=== PATIENT | female | born 1965 | race Caucasian/White ===

== ENCOUNTER 2018-04-09 12:31 | Inpatient (IN) ==
[2018-04-09 15:25] LABS: Baso % (Auto) 0.7 % (0.0-2.0); Eos % (Auto) 0.6 % (0.0-4.0); Hematocrit 42.6 % (35.0-46.0); Hemoglobin 14.8 gm/dL (11.6-15.3); Lymph # (Auto) 1.1 th/mm3 (1.0-4.8); Mean Corpuscular HGB Conc 34.8 % (32.0-36.0); Mean Corpuscular Hemoglobin 30.5 pg (27.0-34.0); Mean Corpuscular Volume 87.7 fL (80.0-100.0); Mean Platelet Volume 7.8 fL (7.0-11.0); Mono # (Auto) 0.6 th/mm3 (0.0-0.9); Mono % (Auto) 12.1 % (0.0-8.0); Neut # (Auto) 3.4 th/mm3 (1.8-7.7); Neut % (Auto) 65.6 % (16.0-70.0); Platelet Count 233 th/mm3 (150-450); Red Blood Count 4.86 mil/mm3 (4.00-5.30); Red Cell Distribution Width 13.5 % (11.6-17.2); White Blood Count 5.1 th/mm3 (4.0-11.0)
--- NOTE | 2018-04-09 15:26 | CT ---
EXAM DATE: 04/09/2018 3:22 PM EDT AGE/SEX: 52 years / Female INDICATIONS: Patient feels disoriented CLINICAL DATA: This is the patient's initial encounter. Patient reports that signs and symptoms have been present for 1 day and indicates a pain score of 0/10. MEDICAL/SURGICAL HISTORY: None. None. RADIATION DOSE: 56.35 CTDI (mGy) COMPARISON: [facility], CT HEAD W/O CONTRAST, 04/08/2018. . TECHNIQUE: CT of the head without contrast. Using automated exposure control and adjustment of the mA and/or kV according to patient size, radiation dose was kept as low as reasonably achievable to ob tain optimal diagnostic quality images. DICOM format image data is available electronically for revi ew and comparison. FINDINGS: Cerebrum: The ventricles are normal for age. No evidence of midline shift, mass lesion, hemorrhage or acute infarction. No extraaxial fluid collections are seen. Posterior Fossa: The cerebellum and brainstem are intact. The 4th ventricle is midline. The cerebe llopontine angle is unremarkable. Extracranial: The visualized portion of the orbits is intact. Skull: The calvaria is intact. No evidence of skull fracture. CONCLUSION: 1. Negative, inflammatory process cannot be entirely excluded. . Electronically signed by: Giovanni Mclean MD 04/09/2018 3:25 PM EDT
[2018-04-09 15:44] LABS: Alanine Aminotransferase 19 U/L (10-53); Albumin 4.1 g/dL (3.4-5.0); Anion Gap 12 meq/L (5-15); Aspartate Aminotransferase 14 U/L (15-37); Blood Urea Nitrogen 30 mg/dL (7-18); Carbon Dioxide 22.9 meq/L (21.0-32.0); Chloride 108 meq/L (98-107); Glomerular Filtration Rate 46 mL/min (>89); Glucose,Random 67 mg/dL (74-106); Sodium 143 meq/L (136-145)
[2018-04-09 15:47] LABS: Alkaline Phosphatase 48 U/L (45-117); Total Protein 8.6 g/dL (6.4-8.2)
--- NOTE | 2018-04-09 16:19 | ED ---
HPI General Chief Complaint: Medical Clearance Stated Complaint: Medical Complaint Time Seen by Provider: 04/09/18 13:14 Source: patient, old records reviewed and police Mode of arrival: ambulatory Limitations: altered mental status History of Present Illness HPI narrative: 52-year-old female presents to the emergency department under law enforcement custody for medical clearance. She was apparently found another person's hotel room by police and when she was arrested she claims that she was disoriented. On my examination the patient answers questions occasionally. When I asked her what brought her into the emergency department she says "confused" and then also answered "dizzy." When I continue to ask her questions she answers "I am confused." When asked where she is she says "hospital." She is not able to answer what her name is, what city she is then, the date, and who the president is. She does not her head yes and no to some of the questions. When I ask her about drugs and alcohol she nods her head no. When asked her if she was allergic to anything she nodded her head no. When I asked her if she had any medical history she nodded her head no. Although, I did review the patient's medical record and the patient's previous visit reports history of anemia, HIV, hepatitis C, schizophrenia, and migraines. No known aggravating or relieving factors. Onset unknown. Duration unknown. Symptoms are moderate to severe in severity. She is unable to verify if she has a primary care provider. Related Data Home Medications Medication Instructions Recorded Confirmed Unable to Obtain Home Meds 04/08/18 04/08/18 Allergies Allergy/AdvReac Type Severity Reaction Status Date / Time No Known Allergies Allergy Unverified 04/09/18 13:11 Review of Systems ROS: all other systems reviewed are negative PMFSH History History Provided By: Patient Social History Social History Substance History: Unable to Obtain Smoking Status: Unknown if ever smoked How Often Do You Have a Drink Containing Alcohol: Unable to Obtain Recent Travel in [place] within the Last 8 Weeks: No Recent Out of Country Travel within the Last 8 Weeks: No Exam Narrative Exam Narrative: Physical exam is limited secondary to the patient not being cooperative for physical exam. I attempted to do neuro exam but the patient is being uncooperative. GENERAL: Well-nourished, well-developed female patient, in no acute distress SKIN: Warm and dry. HEAD: Atraumatic. Normocephalic. No facial droop noted. EYES: Pupils equal and round at 3 mm with brisk reaction. PERRLA. No scleral icterus. No injection or drainage. ENT: Mucosa pink and moist. Airway patent. NECK: Trachea midline. CARDIOVASCULAR: Regular rate and rhythm. No murmur appreciated. RESPIRATORY: No accessory muscle use. Breath sounds clear and equal bilaterally. No retractions or tachypnea. GASTROINTESTINAL: Abdomen soft, non-tender, nondistended. Positive bowel sounds. No hepato-splenomegaly, or palpable masses. No guarding. MUSCULOSKELETAL: No obvious deformities. No clubbing. No cyanosis. No edema. NEUROLOGICAL: Awake and alert. Oriented to place: hospital. No obvious cranial nerve deficits. Motor grossly within normal limits. Moving all extremities. Speech is normal when she talks. PSYCHIATRIC: Appropriate mood and affect; insight and judgment normal. Course Initial Documented Vital Signs Temperature 98.3 F 04/09/18 12:36 Pulse Rate 70 04/09/18 12:36 Respiratory Rate 16 04/09/18 12:36 Blood Pressure 123/87 04/09/18 12:36 Pulse Oximetry 99 04/09/18 12:36 Last Documented Vital Signs Temperature 97.9 F 04/09/18 20:00 Pulse Rate 63 04/09/18 20:00 Respiratory Rate 16 04/09/18 20:00 Blood Pressure 121/85 04/09/18 20:00 Pulse Oximetry 100 04/09/18 20:00 Medical Decision Making [facility] Narrative Medical decision making narrative: 52-year-old female presents under law enforcement custody for medical clearance. She was apparently found another person's hotel room and when she was arrested she claimed that she was disoriented. She tells me that she is disoriented and dizzy. She will only answer specific questions with 1 or 2 word answers. She continues to say "I am confused." Physical exam and HPI are limited secondary to patient not cooperating or her altered mental status. CBC, CMP, EKG, CT head ordered. CT head concluded negative, inflammatory process cannot be entirely excluded. I discussed the findings with Dr. Parr and he recommended calling radiology. I called and spoke with Dr. Mclean, radiologist, and he says that he cannot exclude an inflammatory process secondary to the patient being seen here yesterday for altered mental status and CT head yesterday was unremarkable. I reviewed the medical record and the patient was seen here yesterday for altered mental status; CBC, CMP, urinalysis, drug and alcohol screen, CT head were all unremarkable. Per patient's previous visit patient has history of anemia, HIV, hepatitis C, schizophrenia, and migraines. I discussed this with Dr. Parr and he recommended lumbar puncture and HIV workup. Orders entered. 1805: I spoke with HUMZA Copeland and report given for patient admission. Patient will be admitted for observation for continued altered mental status. Medical Screen Exam Complete: Yes Emergency Medical Condition: Yes Differential Diagnosis Differential Diagnosis: Altered mental status, dizziness, confusion, encephalitis, meningitis, medication noncompliance, medical clearance for incarceration Lab Data Result diagrams: 04/09/18 14:41 04/09/18 14:41 Lab Results 04/09/18 04/09/18 Range/Units 14:41 14:41 WBC 5.1 (4.0-11.0) th/mm3 RBC 4.86 (4.00-5.30) mil/mm3 Hgb 14.8 (11.6-15.3) gm/dL Hct 42.6 (35.0-46.0) % MCV 87.7 (80.0-100.0) fL MCH 30.5 (27.0-34.0) pg MCHC 34.8 (32.0-36.0) % RDW 13.5 (11.6-17.2) % Plt Count 233 (150-450) th/mm3 MPV 7.8 (7.0-11.0) fL Neut % (Auto) 65.6 (16.0-70.0) % Lymph % (Auto) 21.0 (9.0-44.0) % [place] % (Auto) 12.1 H (0.0-8.0) % Eos % (Auto) 0.6 (0.0-4.0) % Baso % (Auto) 0.7 (0.0-2.0) % Neut # (Auto) 3.4 (1.8-7.7) th/mm3 Lymph # (Auto) 1.1 (1.0-4.8) th/mm3 [place] # (Auto) 0.6 (0.0-0.9) th/mm3 Eos # (Auto) 0.0 (0.0-0.4) th/mm3 Baso # (Auto) 0.0 (0.0-0.2) th/mm3 WBC Differential . Differential Comment Auto diff final Sodium 143 (136-145) meq/L Potassium 4.0 D (3.5-5.1) meq/L Chloride 108 H (98-107) meq/L Carbon Dioxide 22.9 (21.0-32.0) meq/L Anion Gap 12 (5-15) meq/L BUN 30 H (7-18) mg/dL Creatinine 1.24 H (0.50-1.00) mg/dL Estimated GFR 46 L (>89) mL/min Random Glucose 67 L (74-106) mg/dL Calcium 9.0 (8.5-10.1) mg/dL Total Bilirubin 0.9 (0.2-1.0) mg/dL AST 14 L (15-37) U/L ALT 19 (10-53) U/L Alkaline Phosphatase 48 (45-117) U/L Total Protein 8.6 H (6.4-8.2) g/dL Albumin 4.1 (3.4-5.0) g/dL Imaging Data Radiologist's impression: Head CT 04/09/18 13:58 CONCLUSION: 1. Negative, inflammatory process cannot be entirely excluded. . Discharge Plan Discharge Disposition Patient Disposition: 30 Still Patient Discharge Condition Condition: Stable Discharge Details Diagnosis: Altered mental status Physicians Team ED Provider: Martin Parr ED Midlevel Provider: Eula Jasso Primary Care Provider: Primary Care Yaneth Hogan Attending Provider: Maria G Najera Other Providers: Beto Ruiz ; [facility],Insurance Status ED Status: Left Department Discharge Information Discharge Date/Time: 04/09/18 20:14
[2018-04-09] MEDS ORDERED: Acetaminophen 325 MG Tablet PO PRN (18:05)
[2018-04-09] MEDS ORDERED: Bisacodyl 10 MG Supp RECTAL PRN (18:05)
--- NOTE | 2018-04-09 21:57 | P.HP ---
History of Present Illness Service: [facility] Primary Care Physician: No Primary Care Physician History of Present Illness: 52-year-old female presented to the emergency department under law enforcement custody for medical clearance. According to ED documentation the patient was found in another person's hotel room by police and when she was arrested she claims that she was disoriented. During our interview, the patient answers questions intermittently. She is unable to tell me what events brought her to the emergency department. She keeps repeating that she is "dizzy and confused. " She is alert and oriented only to self. She also complains of left-sided rib pain. She denies any chest pain or shortness of breath. No abdominal pain. No nausea/vomiting/diarrhea. No fevers/chills. No lateralizing signs/ symptoms. Inpatient Certification: I certify that the inpatient services were ordered in accordance with Medicare regulations governing the order. This includes certification that hospital inpatient services are reasonable and necessary and in the case of services not specified as inpatient-only under 42 CFR 419.22(n), that they are appropriately provided as inpatient services in accordance to with the 2-midnight benchmark under 43 CFR 412.3(e) Estimated Total Length of Stay (Days): 3 Plans for Post Hospital Care: Not yet determined Review of Systems All other systems reviewed negative except as stated in HPI [facility] - History History Provided By: Patient - Medical History Medical History: Medical History (Last Updated 04/09/18 @ 21:51 by Amy Marie MD) Anemia HIV (human immunodeficiency virus infection) Hepatitis C History of hysterectomy Migraines Schizophrenia - Surgical History Surgical History: Surgical History (Last Updated 04/09/18 @ 21:51 by Amy Marie MD) History of rhinoplasty Status post laparoscopic surgery - Family History Family History: Family History (Last Updated 04/09/18 @ 21:51 by Amy Marie MD) Other Family history normal - Tobacco History Smoking Status: Unknown if ever smoked - Alcohol History How Often Do You Have a Drink Containing Alcohol: Unable to Obtain - Substance Use History Substance History: Unable to Obtain - Travel History Recent Travel in the [place] Within the Last 8 Weeks: No Recent Travel Out of the Country Within the Last 8 Weeks: No Medications and Allergies Active Medications: Active Medications Acetaminophen (Tylenol) 650 mg PO Q4H PRN PRN Reason: Temp > 100.4 Al Hydroxide/Mg Hydroxide (Milk Of Magnesia Liq) 30 ml PO Q12H PRN PRN Reason: Mild Constipation Bisacodyl (Dulcolax Supp) 10 mg RECTAL DAILY PRN PRN Reason: SEVERE CONSITIPATION Lactulose (Lactulose Liq) 30 ml PO DAILY PRN PRN Reason: SEVERE CONSITIPATION Ondansetron HCl (Zofran Inj) 4 mg IV.PUSH Q6H PRN PRN Reason: NAUSEA OR VOMITING Sennosides (Senokot) 17.2 mg PO Q12H PRN PRN Reason: Moderate Constipation Sodium Chloride (Ns Flush) 2 ml IV.FLUSH PRN PRN PRN Reason: FLUSH AFTER USING IV ACCESS Allergies Allergy/AdvReac Type Severity Reaction Status Date / Time No Known Allergies Allergy Unverified 04/09/18 13:11 Home Medications Medication Instructions Recorded Confirmed Type Unable to Obtain Home Meds 04/08/18 04/08/18 History Exam Vital signs: Vital Signs 04/09/18 12:36 04/09/18 13:13 04/09/18 20:00 Temperature 98.3 F 97.9 F 97.9 F Pulse Rate 70 70 63 Respiratory Rate 16 16 16 Blood Pressure 123/87 111/76 121/85 Pulse Oximetry 99 100 100 Intake & Output 04/09/18 04/09/18 04/10/18 06:59 18:59 06:59 Weight 54.515 kg Narrative: Gen.: No acute distress. Patient is slow to answer questions and will sometimes refuse to answer however does give clear answers to questions eventually. Head: Normocephalic. Atraumatic. EENT: Pupils equal round and reactive to light. Nose without drainage. Airway intact. Throat without injection. Cardiovascular: Regular rate and rhythm. No murmurs, rubs or gallops. Respiratory: Lungs clear to auscultation bilaterally. No wheezes or rhonchi. Abdomen: Soft, nontender, nondistended. No peritoneal signs. Musculoskeletal: No gross deformities. No edema. Skin: No obvious rashes or erythema. Neuro: Sensory and motor grossly intact. Cranial nerves II through XII grossly intact. 5/5 strength throughout. Results - Labs CBC & Chem 7: 04/09/18 14:41 04/09/18 14:41 Labs: Laboratory Results - last 24 hr 04/09/18 04/09/18 14:41 14:41 WBC 5.1 RBC 4.86 Hgb 14.8 Hct 42.6 MCV 87.7 MCH 30.5 MCHC 34.8 RDW 13.5 Plt Count 233 MPV 7.8 Neut % (Auto) 65.6 Lymph % (Auto) 21.0 [place] % (Auto) 12.1 H Eos % (Auto) 0.6 Baso % (Auto) 0.7 Neut # (Auto) 3.4 Lymph # (Auto) 1.1 [place] # (Auto) 0.6 Eos # (Auto) 0.0 Baso # (Auto) 0.0 WBC Differential . Differential Comment Auto diff final Sodium 143 Potassium 4.0 D Chloride 108 H Carbon Dioxide 22.9 Anion Gap 12 BUN 30 H Creatinine 1.24 H Estimated GFR 46 L Random Glucose 67 L Calcium 9.0 Total Bilirubin 0.9 AST 14 L ALT 19 Alkaline Phosphatase 48 Total Protein 8.6 H Albumin 4.1 - Imaging Impressions Head CT 04/09/18 13:58 CONCLUSION: 1. Negative, inflammatory process cannot be entirely excluded. . Caprini VTE Risk Assessment Caprini VTE Risk Assessment: No/Low Risk (score <= 1) Caprini Risk Assessment Model: Point Value = 1 Point Value = 2 Point Value = 3 Point Value = 5 Age 41-60 Minor surgery BMI > 25 kg/m2 Swollen legs Varicose veins or History of unexplained or recurrent spontaneous Oral contraceptives or hormone replacement Sepsis (< 1 month) Serious lung disease, including pneumonia (< 1 month) Abnormal pulmonary function Acute myocardial infarction Congestive heart failure (< 1 month) History of inflammatory bowel disease Medical patient at bed rest Age 61-74 Arthroscopic surgery Major open surgery (> 45 min) Laparoscopic surgery (> 45 min) Malignancy Confined to bed (> 72 hours) Immobilizing plaster cast Central venous access Age >= 75 History of VTE Family history of VTE Factor V Leiden Prothrombin [id number] Lupus anticoagulant Anticardiolipin antibodies Elevated serum homocysteine Heparin-induced thrombocytopenia Other congenital or acquired thrombophilia Stroke (< 1 month) Elective arthroplasty Hip, pelvis, or leg fracture Acute spinal cord injury (< 1 month) Prophylaxis Regimen: Total Risk Factor Score Risk Level Prophylaxis Regimen 0-1 Low Early ambulation 2 Moderate Order ONE of the following: *Sequential Compression Device (SCD) *Heparin 5000 units SQ BID 3-4 Higher Order ONE of the following medications: *Heparin 5000 units SQ TID *Enoxaparin/Lovenox 40 mg SQ daily (WT < 150 kg, CrCl > 30 mL/min) *Enoxaparin/Lovenox 30 mg SQ daily (WT < 150 kg, CrCl > 10-29 mL/min) *Enoxaparin/Lovenox 30 mg SQ BID (WT < 150 kg, CrCl > 30 mL/min) AND/OR *Sequential Compression Device (SCD) 5 or more Highest Order ONE of the following medications: *Heparin 5000 units SQ TID (Preferred with Epidurals) *Enoxaparin/Lovenox 40 mg SQ daily (WT < 150 kg, CrCl > 30 mL/min) *Enoxaparin/Lovenox 30 mg SQ daily (WT < 150 kg, CrCl > 10-29 mL/min) *Enoxaparin/Lovenox 30 mg SQ BID (WT < 150 kg, CrCl > 30 mL/min) AND *Sequential Compression Device (SCD) Assessment and Plan - Plan Assessment/plan: 1. Altered mental status Unclear etiology Head CT negative, although inflammatory process could not be entirely excluded LP pending Patient is ultimately able to answer most questions although is uncooperative making her difficult to assess Cannot exclude secondary gain Urine drug screen pending 2. Schizophrenia Patient reports she has been off her medications for "a long time" Follow-up as outpatient as patient does not seem to be psychotic at this time 3. HIV/hepatitis C Follow-up as outpatient Patient reports noncompliance with medications 4. Acute kidney injury Creatinine 1.24, baseline unknown IV fluid hydration Monitor renal function FEN N.p.o. after midnight Electrolytes: Monitor and replete as needed NS at 70 cc/hour
[2018-04-09] MEDS: Sod Chloride 0.9% Inj 1,000 ML IV.CONT SCH (23:02)
[2018-04-10 01:58] LABS: Amphetamine Screen,Urine Neg (Neg); Barbiturate Screen,Urine Neg (Neg); Cannabinoid Screen,Urine Neg (Neg); Cocaine Screen,Urine Neg (Neg); Opiate Screen,Urine Neg (Neg)
--- NOTE | 2018-04-10 07:59 | P.CONNEU ---
History of Present Illness Service: Neurology Primary Care Provider: No Primary Care Physician Chief Complaint: Confusion History of Present Illness: 52-year-old female admitted for confusion. CT brain scan negative for any acute lesion. Urine drug screen negative. Noted to have renal insufficiency. Also with an underlying history HIV, schizophrenia, hepatitis. Patient is a poor historian. Seen by medical and psychiatric service. Review of Systems All other systems reviewed negative except as stated in HPI PMFSH - History History Provided By: Patient - Medical History Medical History: Medical History (Last Reviewed 04/10/18 @ 13:47 by Lucas Rawls) Anemia HIV (human immunodeficiency virus infection) Hepatitis C History of hysterectomy Migraines Schizophrenia - Surgical History Surgical History: Surgical History (Last Updated 04/09/18 @ 21:51 by Amy Marie MD) History of rhinoplasty Status post laparoscopic surgery - Family History Family History: Family History (Last Updated 04/09/18 @ 21:51 by Amy Marie MD) Other Family history normal - Tobacco History Smoking Status: Cognitive impairment - Alcohol History How Often Do You Have a Drink Containing Alcohol: Unable to Obtain - Substance Use History Substance History: Unable to Obtain - Travel History Recent Travel in the [place] Within the Last 8 Weeks: No Recent Travel Out of the Country Within the Last 8 Weeks: No Medications and Allergies Active Medications: Active Medications Acetaminophen (Tylenol) 650 mg PO Q4H PRN PRN Reason: Temp > 100.4 Al Hydroxide/Mg Hydroxide (Milk Of Magnesia Liq) 30 ml PO Q12H PRN PRN Reason: Mild Constipation Bisacodyl (Dulcolax Supp) 10 mg RECTAL DAILY PRN PRN Reason: SEVERE CONSITIPATION Sodium Chloride (Ns Inj) 1,000 mls @ 70 mls/hr IV.CONT .[id number] Last Admin: 04/09/18 23:02 Dose: 70 mls/hr Lactulose (Lactulose Liq) 30 ml PO DAILY PRN PRN Reason: SEVERE CONSITIPATION Ondansetron HCl (Zofran Inj) 4 mg IV.PUSH Q6H PRN PRN Reason: NAUSEA OR VOMITING Sennosides (Senokot) 17.2 mg PO Q12H PRN PRN Reason: Moderate Constipation Sodium Chloride (Ns Flush) 2 ml IV.FLUSH PRN PRN PRN Reason: FLUSH AFTER USING IV ACCESS Allergies Allergy/AdvReac Type Severity Reaction Status Date / Time No Known Allergies Allergy Unverified 04/09/18 13:11 Home Medications Medication Instructions Recorded Confirmed Type Unable to Obtain Home Meds 04/08/18 04/08/18 History Exam Vital signs: Vital Signs 04/09/18 12:36 04/09/18 13:13 04/09/18 20:00 Temperature 98.3 F 97.9 F 97.9 F Pulse Rate 70 70 63 Respiratory Rate 16 16 16 Blood Pressure 123/87 111/76 121/85 Pulse Oximetry 99 100 100 04/09/18 23:30 04/10/18 04:00 04/10/18 07:47 Temperature 98.1 F 98.1 F Pulse Rate 76 67 71 Respiratory Rate 16 16 16 Blood Pressure 121/68 120/76 131/80 Pulse Oximetry 99 99 100 Intake & Output 04/09/18 04/10/18 04/10/18 18:59 06:59 18:59 Weight 54.515 kg 54.431 kg Other: # Voids 2 Weight On Admission 54.431 kg Narrative: Laying in bed with a blanket over at the blanket down poor eye contact times appear to be purposeful when she looked at me somewhat paranoid was articulate but not following exact movements were intact no facial asymmetry neck was supple pupils 3 2 mm bilaterally, moving all extremities to gravity no clonus plantarflex response further sensory cerebellar gait testing limited due to patient's mental status - Constitutional no acute distress - Routine HEENT Exam Head: Present: normocephalic Eye: Present: EOMI, PERRL Results - Labs CBC & Chem 7: 04/10/18 11:37 04/10/18 09:05 Labs: Laboratory Results - last 24 hr 04/09/18 04/09/18 04/10/18 14:41 14:41 01:00 WBC 5.1 RBC 4.86 Hgb 14.8 Hct 42.6 MCV 87.7 MCH 30.5 MCHC 34.8 RDW 13.5 Plt Count 233 MPV 7.8 Neut % (Auto) 65.6 Lymph % (Auto) 21.0 [place] % (Auto) 12.1 H Eos % (Auto) 0.6 Baso % (Auto) 0.7 Neut # (Auto) 3.4 Lymph # (Auto) 1.1 [place] # (Auto) 0.6 Eos # (Auto) 0.0 Baso # (Auto) 0.0 WBC Differential . Differential Comment Auto diff final Sodium 143 Potassium 4.0 D Chloride 108 H Carbon Dioxide 22.9 Anion Gap 12 BUN 30 H Creatinine 1.24 H Estimated GFR 46 L Random Glucose 67 L Calcium 9.0 Total Bilirubin 0.9 AST 14 L ALT 19 Alkaline Phosphatase 48 Total Protein 8.6 H Albumin 4.1 Urine Opiates Screen Neg Ur Barbiturates Screen Neg Ur Amphetamines Screen Neg U Benzodiazepines Scrn Neg Urine Cocaine Screen Neg U Cannabinoids Screen Neg - Imaging Impressions Head CT 04/09/18 13:58 CONCLUSION: 1. Negative, inflammatory process cannot be entirely excluded. . Review/Management - Diagnosis (1) Encephalopathy Code(s): G93.40 - Encephalopathy, unspecified Status: Acute Current Visit: Yes (2) Hepatitis C Code(s): B19.20 - Unspecified viral hepatitis C without hepatic coma Status: Acute Current Visit: Yes (3) HIV (human immunodeficiency virus infection) Code(s): B20 - Human immunodeficiency virus [HIV] disease Status: Acute Current Visit: Yes (4) Schizophrenia Code(s): F20.9 - Schizophrenia, unspecified Status: Acute Current Visit: Yes - Review/Management Plan: Suspect psychogenic confusion/associated with underlying schizophrenia She is afebrile vitals are stable. However with her history of HIV and hepatitis C will exclude other more remote possibilities Recommendations EEG Neuroimaging if feasible Would obtain lumbar puncture If the above is unremarkable she can be transferred to the psychiatric unit Discussed with medical
[2018-04-10 09:59] LABS: Calcium 8.7 mg/dL (8.5-10.1); Carbon Dioxide 17.7 meq/L (21.0-32.0); Potassium 3.8 meq/L (3.5-5.1)
--- NOTE | 2018-04-10 11:16 | P.PN ---
Subjective Interval history: Nursing denies any deterioration since last night except where the patient is not being verbal with anyone. When I talked to the patient she does not respond to me, she maintains eye contact. Physical Exam Vital signs: Vital Signs 04/09/18 12:36 04/09/18 13:13 04/09/18 20:00 Temperature 98.3 F 97.9 F 97.9 F Pulse Rate 70 70 63 Respiratory Rate 16 16 16 Blood Pressure 123/87 111/76 121/85 Pulse Oximetry 99 100 100 04/09/18 23:30 04/10/18 04:00 04/10/18 07:47 Temperature 98.1 F 98.1 F Pulse Rate 76 67 71 Respiratory Rate 16 16 16 Blood Pressure 121/68 120/76 131/80 Pulse Oximetry 99 99 100 Intake & Output 04/09/18 04/10/18 04/10/18 18:59 06:59 18:59 Weight 54.515 kg 54.431 kg Other: # Voids 2 Weight On Admission 54.431 kg Narrative: Patient maintains some eye contact when I speak to her, otherwise is almost exclusively nonverbal Heart sounds regular rate rhythm, no murmurs Clear lungs bilaterally Pupils equal and round and reactive bilaterally Does not follow motor commands, no facial droop is obvious Results - Labs CBC & Chem 7: 04/10/18 11:37 04/10/18 09:05 Laboratory Results - last 24 hr 04/09/18 04/09/18 04/10/18 14:41 14:41 01:00 WBC 5.1 RBC 4.86 Hgb 14.8 Hct 42.6 MCV 87.7 MCH 30.5 MCHC 34.8 RDW 13.5 Plt Count 233 MPV 7.8 Neut % (Auto) 65.6 Lymph % (Auto) 21.0 [place] % (Auto) 12.1 H Eos % (Auto) 0.6 Baso % (Auto) 0.7 Neut # (Auto) 3.4 Lymph # (Auto) 1.1 [place] # (Auto) 0.6 Eos # (Auto) 0.0 Baso # (Auto) 0.0 WBC Differential . Differential Comment Auto diff final Sodium 143 Potassium 4.0 D Chloride 108 H Carbon Dioxide 22.9 Anion Gap 12 BUN 30 H Creatinine 1.24 H Estimated GFR 46 L Random Glucose 67 L Calcium 9.0 Total Bilirubin 0.9 AST 14 L ALT 19 Alkaline Phosphatase 48 Ammonia Total Protein 8.6 H Albumin 4.1 Urine Opiates Screen Neg Ur Barbiturates Screen Neg Ur Amphetamines Screen Neg U Benzodiazepines Scrn Neg Urine Cocaine Screen Neg U Cannabinoids Screen Neg 04/10/18 04/10/18 09:05 09:05 WBC RBC Hgb Hct MCV MCH MCHC RDW Plt Count MPV Neut % (Auto) Lymph % (Auto) [place] % (Auto) Eos % (Auto) Baso % (Auto) Neut # (Auto) Lymph # (Auto) [place] # (Auto) Eos # (Auto) Baso # (Auto) WBC Differential Differential Comment Sodium 141 Potassium 3.8 Chloride 110 H Carbon Dioxide 17.7 L Anion Gap 13 BUN 26 H Creatinine 0.98 Estimated GFR 60 L Random Glucose 55 L Calcium 8.7 Total Bilirubin AST ALT Alkaline Phosphatase Ammonia Less than 10 L Total Protein Albumin Urine Opiates Screen Ur Barbiturates Screen Ur Amphetamines Screen U Benzodiazepines Scrn Urine Cocaine Screen U Cannabinoids Screen - Imaging Impressions Head CT 04/09/18 13:58 CONCLUSION: 1. Negative, inflammatory process cannot be entirely excluded. . Assessment and Plan - Plan 1. Altered mental status/psychosis So far overall organic workup has been unremarkable including head CT and TSH. I expect for the LP, EEG, and MRI of the brain and the B12 findings to be all unremarkable as well. We will wait for these results as well as for psychiatric evaluation given that the patient had been admitted with Ramon act per nursing and has a history of schizophrenia 2. Schizophrenia Patient reports she has been off her medications for "a long time" Follow-up as outpatient as patient does not seem to be psychotic at this time 3. HIV/hepatitis C Follow-up as outpatient Patient reports noncompliance with medications 4. Acute kidney injury resolved w/ IVFs
[2018-04-10 11:51] LABS: Baso # (Auto) 0.1 th/mm3 (0.0-0.2); Baso % (Auto) 1.1 % (0.0-2.0); Eos % (Auto) 0.6 % (0.0-4.0); Hemoglobin 13.7 gm/dL (11.6-15.3); Lymph % (Auto) 21.5 % (9.0-44.0); Mean Corpuscular HGB Conc 34.3 % (32.0-36.0); Mean Corpuscular Hemoglobin 29.8 pg (27.0-34.0); Mean Corpuscular Volume 86.8 fL (80.0-100.0); Mean Platelet Volume 7.7 fL (7.0-11.0); Mono # (Auto) 0.5 th/mm3 (0.0-0.9); Mono % (Auto) 9.7 % (0.0-8.0); Neut # (Auto) 3.2 th/mm3 (1.8-7.7); Neut % (Auto) 67.1 % (16.0-70.0); Platelet Count 239 th/mm3 (150-450); Red Blood Count 4.62 mil/mm3 (4.00-5.30); Red Cell Distribution Width 13.8 % (11.6-17.2); White Blood Count 4.8 th/mm3 (4.0-11.0)
[2018-04-10 12:19] LABS: INR 1.2 Ratio; Prothrombin Time 11.7 sec (9.8-11.6)
[2018-04-10] MEDS: Sod Chloride 0.9% Inj 1,000 ML IV.CONT SCH ×2 (13:43→17:13)
--- NOTE | 2018-04-10 13:56 | ECG ---
Date Performed: 04/09/2018 Time Performed: 14:38:06 PTAGE: 52 years EKG: Sinus rhythm NONSPECIFIC T-WAVE ABNORMALITY BORDERLINE ECG Since the PREVIOUS TRACING , no significant change noted PREVIOUS TRACIN04/08/2018 18.50 DOCTOR: Leon Mcfadden Interpretating Date/Time 04/10/2018 13:54:31
--- NOTE | 2018-04-10 14:04 | P.CONPSY ---
Provisional Diagnosis Admission Date: April 09, 2018 18:05 Elmer I.: Unspecified psychosis, R/O delirium due to another underlying medical condition , r/p schizophrenia, acute exacerbation Elmer II.: Deferred Elmer III.: Hepatitis C, HIV History of Present Illness Service: ER Primary Care Provider: No Primary Care Physician Chief Complaint: Confusion History of Present Illness: The patient is a 52-year-old woman, homeless, single, unemployed, supported by [facility], with a psychiatric history of schizophrenia, psychiatric hospitalizations, she denies suicidal attempts, she was hospitalized here in [place] in 2017 with a very similar presentation than today, she also presented with catatonic-like symptoms and she was consider for ECT, but she finally improved with olanzapine 5 mg twice daily, documentation reviewed, she has medical history of HIV and hepatitis C, presented to the emergency department under law enforcement custody for medical clearance. According to ED documentation the patient was found in another person's hotel room by police and when she was arrested she claims that she was disoriented. During our ER interview, the patient answers questions intermittently. She is unable to tell me what events brought her to the emergency department. She keeps repeating that she is "dizzy and confused." She is alert and oriented only to self. She also complains of left-sided rib pain. She denies any chest pain or shortness of breath. No abdominal pain. No nausea/vomiting/diarrhea. No fevers/chills. No lateralizing signs/symptoms. The patient was admitted due to Altered mental status Unclear etiology. U tox is negative. Head CT negative, although inflammatory process could not be entirely excluded. LP pending. She also shows Acute kidney injury, Creatinine 1.24. Chart has been reviewed. The case has been discussed extensively with primary medical team and nursing staff. On my psychiatric evaluation I find a patient that is poorly cooperative, restrained in 2 points, she has recently tried to elope from the ER, has been disorganized , no aggressive. The patient barely answer to my questions. She mostly stares , seems to be internally preoccupied, paranoid, selectively mute. She reports that she is here because she has a mental breakdown. She does not a lot of worry about what a mental breakdown means or is. She does report that "people are following me and are trying to read my my and see inside me". She reports that she does not feel safe here or with people around. Other than this, the patient does not answer my questions about suicidal ideation, homicidal ideation , visual or auditory hallucinations. She seems to be quite disoriented/ confused. PPHx: Schizophrenia, multiple psychiatric admissions, last hospitalization here in 2017, she is not a medications, she denies previous suicidal attempts. She was discharged on olanzapine 5 mg twice daily from [place] in 2017. PMHx: HIV, hepatitis Substance Hx: Patient denies the use of illegal drugs and alcohol Family Hx: She denies family psychiatric history Social Hx: Patient was born in [place], she is homeless, single, unemployed, supported by [facility] - History History Provided By: Patient - Medical History Medical History: Medical History (Last Reviewed 04/10/18 @ 13:47 by Lucas Rawls) Anemia HIV (human immunodeficiency virus infection) Hepatitis C History of hysterectomy Migraines Schizophrenia - Surgical History Surgical History: Surgical History (Last Updated 04/09/18 @ 21:51 by Aym Marie MD) History of rhinoplasty Status post laparoscopic surgery - Family History Family History: Family History (Last Updated 04/09/18 @ 21:51 by Amy Marie MD) Other Family history normal - Tobacco History Smoking Status: Cognitive impairment - Alcohol History How Often Do You Have a Drink Containing Alcohol: Unable to Obtain - Substance Use History Substance History: Unable to Obtain - Travel History Recent Travel in the [place] Within the Last 8 Weeks: No Recent Travel Out of the Country Within the Last 8 Weeks: No Medications and Allergies Active Medications: Active Medications Acetaminophen (Tylenol) 650 mg PO Q4H PRN PRN Reason: Temp > 100.4 Al Hydroxide/Mg Hydroxide (Milk Of Magnesia Liq) 30 ml PO Q12H PRN PRN Reason: Mild Constipation Bisacodyl (Dulcolax Supp) 10 mg RECTAL DAILY PRN PRN Reason: SEVERE CONSITIPATION Sodium Chloride (Ns Inj) 1,000 mls @ 70 mls/hr IV.CONT .[id number] [facility] Last Admin: 04/10/18 13:43 Dose: 70 mls/hr Lactulose (Lactulose Liq) 30 ml PO DAILY PRN PRN Reason: SEVERE CONSITIPATION Ondansetron HCl (Zofran Inj) 4 mg IV.PUSH Q6H PRN PRN Reason: NAUSEA OR VOMITING Sennosides (Senokot) 17.2 mg PO Q12H PRN PRN Reason: Moderate Constipation Sodium Chloride (Ns Flush) 2 ml IV.FLUSH PRN PRN PRN Reason: FLUSH AFTER USING IV ACCESS Allergies Allergy/AdvReac Type Severity Reaction Status Date / Time No Known Allergies Allergy Unverified 04/09/18 13:11 Home Medications Medication Instructions Recorded Confirmed Type Unable to Obtain Home Meds 04/08/18 04/08/18 History Exam Vital signs: Vital Signs 04/09/18 20:00 04/09/18 23:30 04/10/18 04:00 Temperature 97.9 F 98.1 F 98.1 F Pulse Rate 63 76 67 Respiratory Rate 16 16 16 Blood Pressure 121/85 121/68 120/76 Pulse Oximetry 100 99 99 04/10/18 07:47 04/10/18 12:00 Temperature 98.1 F Pulse Rate 71 64 Respiratory Rate 16 18 Blood Pressure 131/80 118/73 Pulse Oximetry 100 100 Intake & Output 04/09/18 04/10/18 04/10/18 18:59 06:59 18:59 Intake Total 1000 / 1000 Balance 1000 / 1000 Weight 54.515 kg 54.431 kg Intake: IV 1000 / 1000 NS Inj 1,000 ML @ 70 mls/hr IV. 1000 / 1000 CONT .[id number] [facility] Rx#:[id number] Other: # Voids 2 Weight On Admission 54.431 kg Mental Status Examination Appearance: Dirty, Disheveled, Malodorous Consciousness: Alert Orientation: Person, Place Speech: Hesitant, Other (Selectively mute) Language: Adequate Fund of Knowledge: Poor Attention and Concentration: Inadequate Memory: Impaired Mood: Oppositional Affect: Flat Thought Process & Associations: Disorganized Thought Content: Bizarre thinking Hallucination Type: None Delusion Type: Bizarre, Paranoid Suicidal Ideation: No Suicidal Plan: No Suicidal Intention: No Homicidal Ideation: No Homicidal Plan: No Homicidal Intention: No Insight: Poor Judgment: Poor Assessment and Plan - Assessment (1) Unspecified psychosis Code(s): F29 - Unspecified psychosis not due to a substance or known physiological condition Status: Acute - Plan Plan: Estimated LOS: [] days On psychiatric evaluation today I find a patient that is oppositional, selectively mute, she seems to be internally preoccupied, confused, disoriented , unable to provide much meaningful information for the psychiatric assessment. There is a patient that has been brought to the hospital on the Ramon act due to bizarre/inappropriate behavior in the street. He is just oriented in person and partially in place, and seems to have fluctuation of consciousness and attention deficit which may be wondered the patient is delirious rather than psychotic. This is a patient with a psychiatric history of schizophrenia, multiple psychiatric admissions, she was admitted here in [place] in 2017 without psychosis and catatonic-like symptoms that were quite difficult to treat. At that time she was ever considered for ECT. Since the patient has history of hepatitis C and HIV, most probably untreated, and current presentation seems to be consistent with delirium, a complete medical workup of the liver is recommended including a neurology consult with EEG, MRI, and possible LP. If symptoms of psychosis persist beyond medical clearance, the patient definitely needs psychiatric admission for stabilization and safety. I will start olanzapine 2.5 mg twice daily for his psychosis. I will follow-up. Justification for Continued Inpatient Stay: She may benefit of psychiatric admission once medically stable.
--- NOTE | 2018-04-10 22:11 | MG ---
cc: Beto Ruiz MD ELECTROENCEPHALOGRAM RECORD NUMBER: [id number] DESCRIPTION: The background shows spindles with theta activity. Some artifact in FP1 lead followed by more generalized slowing, suggestive of drowsy sleep state. Polysynchrony, some asynchronous waveforms, posterior slowing, large amplitude theta occurring. Limited driving with photic stimulation. Good EEG variability reactivity. Single-lead EKG showing sinus rhythm. INTERPRETATION: Mild encephalopathy in sleep state. Clinical correlation. Beto Ruiz MD MG/rw/do , 09:13 PM , 09:19 PM MTDD
[2018-04-11] MEDS: Sod Chloride 0.9% Inj 1,000 ML IV.CONT SCH ×3 (04:25→19:08)
--- NOTE | 2018-04-11 09:10 | P.PNIM ---
Subjective Interval history: Nursing staff states that she has been curled up in the bed with no interaction except for 1 request to drink water. She was nonverbal to me and did not reply to my questions this morning. Physical Exam Vital signs: Vital Signs 04/10/18 12:00 04/10/18 17:25 04/10/18 20:00 Temperature 98.1 F 97.6 F 97.3 F L Pulse Rate 64 68 59 L Respiratory Rate 18 17 17 Blood Pressure 118/73 120/78 118/72 Pulse Oximetry 100 100 99 04/11/18 00:51 Temperature Pulse Rate 68 Respiratory Rate 17 Blood Pressure 136/78 Pulse Oximetry 96 Intake & Output 04/10/18 04/11/18 04/11/18 18:59 06:59 18:59 Intake Total 1300 / 1300 180 / 180 922 / 922 Balance 1300 / 1300 180 / 180 922 / 922 Weight 47 kg Intake: IV 1300 / 1300 922 / 922 NS Inj 1,000 ML @ 70 mls/hr IV. 1300 / 1300 922 / 922 CONT .[id number] [facility] Rx#:[id number] Oral 180 / 180 Other: # Voids 1 Narrative: GENERAL: This is a well-nourished, well-developed patient, in no apparent distress curled up in a position. CARDIOVASCULAR: Regular rate and rhythm RESPIRATORY: Clear to auscultation. Breath sounds equal bilaterally. No wheezes , rales, or rhonchi. MUSCULOSKELETAL: Extremities without clubbing, cyanosis, or edema. NEURO: Nonverbal, catatonic, refuses to answer my questions. Results - Labs CBC & Chem 7: 04/10/18 11:37 04/10/18 09:05 Laboratory Results - last 24 hr 04/10/18 04/10/18 04/10/18 09:05 09:05 09:05 WBC RBC Hgb Hct MCV MCH MCHC RDW Plt Count MPV Neut % (Auto) Lymph % (Auto) [place] % (Auto) Eos % (Auto) Baso % (Auto) Neut # (Auto) Lymph # (Auto) [place] # (Auto) Eos # (Auto) Baso # (Auto) WBC Differential Differential Comment PT INR APTT Sodium 141 Potassium 3.8 Chloride 110 H Carbon Dioxide 17.7 L Anion Gap 13 BUN 26 H Creatinine 0.98 Estimated GFR 60 L Random Glucose 55 L Calcium 8.7 Ammonia Less than 10 L Vitamin B12 1888 H 04/10/18 04/10/18 04/10/18 11:37 11:37 11:37 WBC 4.8 RBC 4.62 Hgb 13.7 Hct 40.0 MCV 86.8 MCH 29.8 MCHC 34.3 RDW 13.8 Plt Count 239 MPV 7.7 Neut % (Auto) 67.1 Lymph % (Auto) 21.5 [place] % (Auto) 9.7 H Eos % (Auto) 0.6 Baso % (Auto) 1.1 Neut # (Auto) 3.2 Lymph # (Auto) 1.0 [place] # (Auto) 0.5 Eos # (Auto) 0.0 Baso # (Auto) 0.1 WBC Differential . Differential Comment Auto diff final PT 11.7 H INR 1.2 APTT 26.2 Sodium Potassium Chloride Carbon Dioxide Anion Gap BUN Creatinine Estimated GFR Random Glucose Calcium Ammonia Vitamin B12 Assessment and Plan - Plan 1. Altered mental status/psychosis So far overall organic workup has been unremarkable including head CT and TSH. It is medically necessary for patient to complete that lumbar puncture for thorough workup for altered mental status to rule out any other organic causes. Appreciate neurology's recommendations. 2. Schizophrenia Patient reports she has been off her medications for "a long time" Patient is status post Ramon act and has been evaluated by psychiatry for psychosis. She has been catatonic for the past 24 hours. 3. HIV/hepatitis C Follow-up as outpatient, current CD4 counts pending History of noncompliance with medications 4. Acute kidney injury resolved w/ IVFs 5. DVT prophylaxishold anticoagulation for pending LP.
--- NOTE | 2018-04-11 09:11 | P.PNNEU ---
Subjective Subjective Comments: No acute events Active Medications: Active Medications Acetaminophen (Tylenol) 650 mg PO Q4H PRN PRN Reason: Temp > 100.4 Al Hydroxide/Mg Hydroxide (Milk Of Magnesia Liq) 30 ml PO Q12H PRN PRN Reason: Mild Constipation Bisacodyl (Dulcolax Supp) 10 mg RECTAL DAILY PRN PRN Reason: SEVERE CONSITIPATION Sodium Chloride (Ns Inj) 1,000 mls @ 70 mls/hr IV.CONT .[id number] [facility] Last Admin: 04/11/18 08:59 Dose: 70 mls/hr Lactulose (Lactulose Liq) 30 ml PO DAILY PRN PRN Reason: SEVERE CONSITIPATION Ondansetron HCl (Zofran Inj) 4 mg IV.PUSH Q6H PRN PRN Reason: NAUSEA OR VOMITING Sennosides (Senokot) 17.2 mg PO Q12H PRN PRN Reason: Moderate Constipation Sodium Chloride (Ns Flush) 2 ml IV.FLUSH PRN PRN PRN Reason: FLUSH AFTER USING IV ACCESS Allergies/Adverse Reactions: Allergies Allergy/AdvReac Type Severity Reaction Status Date / Time No Known Allergies Allergy Unverified 04/09/18 13:11 Physical Exam Vital signs: Vital Signs 04/10/18 12:00 04/10/18 17:25 04/10/18 20:00 Temperature 98.1 F 97.6 F 97.3 F L Pulse Rate 64 68 59 L Respiratory Rate 18 17 17 Blood Pressure 118/73 120/78 118/72 Pulse Oximetry 100 100 99 04/11/18 00:51 Temperature Pulse Rate 68 Respiratory Rate 17 Blood Pressure 136/78 Pulse Oximetry 96 Intake & Output 04/10/18 04/11/18 04/11/18 18:59 06:59 18:59 Intake Total 1300 / 1300 180 / 180 922 / 922 Balance 1300 / 1300 180 / 180 922 / 922 Weight 47 kg Intake: IV 1300 / 1300 922 / 922 NS Inj 1,000 ML @ 70 mls/hr IV. 1300 / 1300 922 / 922 CONT .[id number] [facility] Rx#:[id number] Oral 180 / 180 Other: # Voids 1 Narrative: Laying left lateral decubitus position blanket over her resting arousable alerts poor eye contact mute not following plantarflex her withdraws all 4 extremities no gaze deviation - Constitutional no acute distress - Routine HEENT Exam Head: Present: normocephalic Eye: Present: EOMI Objective Laboratory Results - last 24 hr 04/10/18 04/10/18 04/10/18 09:05 09:05 09:05 WBC RBC Hgb Hct MCV MCH MCHC RDW Plt Count MPV Neut % (Auto) Lymph % (Auto) [place] % (Auto) Eos % (Auto) Baso % (Auto) Neut # (Auto) Lymph # (Auto) [place] # (Auto) Eos # (Auto) Baso # (Auto) WBC Differential Differential Comment PT INR APTT Sodium 141 Potassium 3.8 Chloride 110 H Carbon Dioxide 17.7 L Anion Gap 13 BUN 26 H Creatinine 0.98 Estimated GFR 60 L Random Glucose 55 L Calcium 8.7 Ammonia Less than 10 L Vitamin B12 1888 H 04/10/18 04/10/18 04/10/18 11:37 11:37 11:37 WBC 4.8 RBC 4.62 Hgb 13.7 Hct 40.0 MCV 86.8 MCH 29.8 MCHC 34.3 RDW 13.8 Plt Count 239 MPV 7.7 Neut % (Auto) 67.1 Lymph % (Auto) 21.5 [place] % (Auto) 9.7 H Eos % (Auto) 0.6 Baso % (Auto) 1.1 Neut # (Auto) 3.2 Lymph # (Auto) 1.0 [place] # (Auto) 0.5 Eos # (Auto) 0.0 Baso # (Auto) 0.1 WBC Differential . Differential Comment Auto diff final PT 11.7 H INR 1.2 APTT 26.2 Sodium Potassium Chloride Carbon Dioxide Anion Gap BUN Creatinine Estimated GFR Random Glucose Calcium Ammonia Vitamin B12 Review/Management - Diagnosis (1) Encephalopathy Code(s): G93.40 - Encephalopathy, unspecified Status: Acute Current Visit: Yes (2) Hepatitis C Code(s): B19.20 - Unspecified viral hepatitis C without hepatic coma Status: Acute Current Visit: Yes (3) HIV (human immunodeficiency virus infection) Code(s): B20 - Human immunodeficiency virus [HIV] disease Status: Acute Current Visit: Yes (4) Schizophrenia Code(s): F20.9 - Schizophrenia, unspecified Status: Acute Current Visit: Yes - Review/Management Plan: Suspect psychogenic confusion/associated with underlying schizophrenia She is afebrile vitals are stable. However with her history of HIV and hepatitis C will exclude other more remote possibilities Recommendations EEG; mild encephalopathy Neuroimaging if feasible I feel it is medically necessary for the patient to have a lumbar puncture performed If the above is unremarkable she can be transferred to the psychiatric unit Discussed with medical
--- NOTE | 2018-04-11 11:28 | P.RAD ---
Post Procedure Progress Note - Pre Procedure Diagnosis (1) Altered mental status - Post Procedure Diagnosis (1) Altered mental status - Procedure Information Procedure Date: 04/11/18 Supervising Radiologist: Cornelius Glez Jr, MD Proceduralist/Assist: Susan Burgos Kristen Anesthesia: Other - Plan of Activity Patient to Unit: Nursing Unit Patient Condition: Good See PACS Report for procedural detail/treatment. Spinal Procedure Lumbar Puncture L3-L4 Fluid Removal (CCs): 12 Fluid Description: Clear Puncture Time: 10:59 Findings: Opening pr: 14 cm H20
[2018-04-11] MEDS ORDERED: Gadobutrol PF 2 MMOL/2 ML Vial (for RAD) IV.SIG ONE (11:41)
--- NOTE | 2018-04-11 12:19 | MR ---
EXAM DATE: 04/11/2018 12:09 PM EDT AGE/SEX: 52 years / Female INDICATIONS: Altered mental status. CLINICAL DATA: This is the patient's subsequent encounter. Patient reports that signs and symptoms h ave been present for 2 days and indicates a pain score of 2/10. MEDICAL/SURGICAL HISTORY: Hepatitis C. HIV. . [place]in[place] [facility] [place]. . TECHNIQUE: Multiplanar, multisequence examination of the brain was performed without and with 5 ml Ga davist (gadobutrol) contrast as a single exam dose. FINDINGS: The CSF spaces, ventricles and cisterns are of normal size and configuration. There is mild increased FLAIR signal in the periventricular white matter and basal ganglia, nonspecific. No evidence of acut e infarction on diffusion-weighted imaging. No hemorrhage, infarct, or mass. No abnormal areas of enh ancement are identified following contrast demonstration. CONCLUSION: 1. Minimal white matter disease. Electronically signed by: Alan Ohara MD 04/11/2018 12:18 PM EDT
[2018-04-11 13:51] LABS: Lymphocytes, CSF 100 %; Neutrophils,CSF 0 %
[2018-04-11 13:53] LABS: RBC on Tube 1 2 /mm3
[2018-04-11 13:56] LABS: RBC on Tube 4 2 /mm3
[2018-04-12] MEDS: Sod Chloride 0.9% Inj 1,000 ML IV.CONT SCH (06:39)
--- NOTE | 2018-04-12 09:14 | P.PNIM ---
Subjective Interval history: More talkative today tells me she has nowhere to go. She is homeless. She does not remember wandering in people's homes. She asked why she is here in [place]. Physical Exam Vital signs: Vital Signs 04/11/18 20:00 04/12/18 00:00 04/12/18 08:00 Temperature 97.7 F 97.0 F L 97.9 F Pulse Rate 74 76 61 Respiratory Rate 16 16 15 Blood Pressure 114/84 110/79 113/71 Pulse Oximetry 100 100 97 Intake & Output 04/11/18 04/12/18 04/12/18 18:59 06:59 18:59 Intake Total 922 / 922 1480 / 1480 Balance 922 / 922 1480 / 1480 Intake: IV 922 / 922 1000 / 1000 NS Inj 1,000 ML @ 70 mls/hr IV. 922 / 922 1000 / 1000 CONT .[id number] Rx#:[id number] Oral 480 / 480 Other: # Voids 2 Narrative: GENERAL: This is a well-nourished, well-developed patient, in no apparent distress. CARDIOVASCULAR: Regular rate and rhythm RESPIRATORY: Clear to auscultation. Breath sounds equal bilaterally. No wheezes , rales, or rhonchi. GASTROINTESTINAL: Abdomen soft, non-tender, nondistended. Normal active bowel sounds MUSCULOSKELETAL: Extremities without clubbing, cyanosis, or edema. NEURO: More awake and alert talkative. Oriented to person place and month but not to situation. Moves bilateral upper and lower extremities. Results - Labs CBC & Chem 7: 04/10/18 11:37 04/10/18 09:05 Laboratory Results - last 24 hr 04/09/18 04/11/18 04/11/18 17:05 10:59 10:59 CSF Volume (1) CSF Supernat Color (1) CSF Gross Blood (1) CSF WBC (1) 1 CSF RBC (1) 2 H CSF Volume (2) CSF Supernat Color (2) CSF Gross Blood (2) CSF Volume (3) CSF Supernat Color (3) CSF Gross Blood (3) CSF Volume (4) CSF Supernat Color (4) CSF Gross Blood (4) CSF WBC (4) CSF RBC (4) CSF Neutrophils % CSF Lymphocytes % CSF Glucose CSF Total Protein CSF N.mening B/E.coli K1 Cancelled CSF N.meningitidis A/Y Cancelled Bacterial Ag Source Cancelled CMV Qnt PCR IU/mL Undetected H.influenzae Type B Ag Cancelled N. meningitidis C/W 135 Cancelled Group B Strep Antigen Cancelled S. pneumoniae Antigen Cancelled 04/11/18 04/11/18 04/11/18 10:59 10:59 10:59 CSF Volume (1) 2.2 CSF Supernat Color (1) Clear CSF Gross Blood (1) 0 CSF WBC (1) CSF RBC (1) CSF Volume (2) 2.6 CSF Supernat Color (2) Clear CSF Gross Blood (2) 0 CSF Volume (3) 3.0 CSF Supernat Color (3) Clear CSF Gross Blood (3) 0 CSF Volume (4) 3.5 CSF Supernat Color (4) Clear CSF Gross Blood (4) 0 CSF WBC (4) 2 CSF RBC (4) 2 H CSF Neutrophils % 0 CSF Lymphocytes % 100 CSF Glucose 36 L CSF Total Protein 36.6 CSF N.mening B/E.coli K1 CSF N.meningitidis A/Y Bacterial Ag Source CMV Qnt PCR IU/mL H.influenzae Type B Ag N. meningitidis C/W 135 Group B Strep Antigen S. pneumoniae Antigen Microbiology 04/11/18 10:59 Lumbar Puncture Gram Stain - Final 04/11/18 10:59 Lumbar Puncture CSF Culture - Preliminary No growth in 24 hours - Imaging Impressions Head MRI 04/11/18 00:00 CONCLUSION: 1. Minimal white matter disease. Assessment and Plan - Plan 1. Altered mental status/psychosis So far overall organic workup has been unremarkable including head CT and TSH. Status post lumbar puncture and awaiting results. CSF fluid is currently pending. Appreciate neurology's recommendations. Mental status is improving. Encourage activity 2. Schizophrenia Patient reports she has been off her medications for "a long time" Patient is status post Ramon act and has been evaluated by psychiatry for psychosis. Likely will transfer to psychiatry for further evaluation if lumbar puncture workup is negative. 3. HIV/hepatitis C Follow-up as outpatient, current CD4 counts pending History of noncompliance with medications 4. Acute kidney injury resolved w/ IVFs, will discontinue IV fluids today 5. DVT prophylaxisNo mechanical or pharmaceutical VTE prophalaxis administered due to patient's low risk assessment of VTE. Encouraged ambulation. Discharge Planning: Likely discharge she was inpatient psychiatry unit in a.m. if lumbar puncture is negative.
--- NOTE | 2018-04-12 10:34 | IR ---
EXAM DATE: 04/12/2018 8:38 AM EDT AGE/SEX: 52 years / Female INDICATIONS: Patient presents with altered mental status in need of lumbar puncture. CLINICAL DATA: This is the patient's initial encounter. Patient reports that signs and symptoms have been present for 2 days and indicates a pain score of 0/10. MEDICAL/SURGICAL HISTORY: Hepatitis C. HIV, Schizophrenia, Migraines Hysterectomy. COMPARISON: No prior exams available for comparison. FLUORO TIME (min): 0.48 IMAGE SERIES: 4 ACCESS SITE: L3-4 LUMBAR PUNCTURE TIME: 1059 hours OPENING PRESSURE: 14 cm of water CLOSING PRESSURE: not requested FLUID: Total volume of 12.5 cc of clear fluid was removed. Fluid was sent to lab for ordered studies. ; . . PROCEDURE: 1. Fluoroscopic guided lumbar puncture. The risks, benefits and alternatives to the procedure were explained and verbal and written consent w as obtained. The site was prepped in sterile fashion. Full sterile technique was used, including ca p, mask, sterile gloves and gown and a large sterile sheet. Hand hygiene and 2% chlorhexidine and/or betadine/alcohol prep was utilized per protocol for cutaneous antisepsis. The skin and subcutaneous tissues were infiltrated with local anesthetic solution. With fluoroscopic guidance the lumbar thecal sac was punctured at the level above. The fluid describ ed above was removed without difficulty. The patient tolerated the procedure well and there were no complications. CONCLUSION: 1. Uncomplicated fluoroscopically guided lumbar puncture. Electronically signed by: Cornelius Glez MD 04/12/2018 10:32 AM EDT
[2018-04-12 21:19] LABS: Enterovirus (PCR)Source CSF; Enterovirus RNA Qual (PCR) Negative (Negative)
--- NOTE | 2018-04-13 09:14 | P.DS ---
Date of admission: 04/09/18 18:05 Primary care physician: No Primary Care Physician Anticipated date of discharge: 04/13/18 Brief History from admission: 52-year-old female presented to the emergency department under law enforcement custody for medical clearance. According to ED documentation the patient was found in another person's hotel room by police and when she was arrested she claims that she was disoriented. During our interview, the patient answers questions intermittently. She is unable to tell me what events brought her to the emergency department. She keeps repeating that she is "dizzy and confused. " She is alert and oriented only to self. She also complains of left-sided rib pain. She denies any chest pain or shortness of breath. No abdominal pain. No nausea/vomiting/diarrhea. No fevers/chills. No lateralizing signs/ symptoms. Patient update on day of discharge: Patient eating food. She denies any pain. She has ambulated to the bathroom without any difficulty. She was oriented to place, time but not to situation. DS: Diagnosis - Discharge Diagnosis (1) Encephalopathy Status: Acute Diagnosis: Principal (2) Schizophrenia Status: Chronic Diagnosis: Secondary (3) Unspecified psychosis Status: Acute Diagnosis: Principal DS: Summary Hospital Course: 53-year-old white female with admitted for confusion with acute encephalopathy which full workup was done to rule out organic cause rather than her underlying schizophrenia. Neurology and psychiatry were both consulted during the case. Neurology, Dr. Ruiz recommended lumbar puncture for comprehensive workup which revealed negative cultures. Imaging studies were all negative. Patient during hospitalization has become more verbal and moved out of the catatonic state. At this time, patient has gained maximum benefit from hospitalization is ready to be discharged to inpatient psychiatric unit for continued workup and therapy with psychiatry service. - Time Spent with Patient Total time spent providing and/or coordinating discharge services: Less than 30 minutes - Quality: VTE Deep Vein Thrombosis/Pulmonary Embolism Present on Admission: No Exam Vital signs: Vital Signs 04/12/18 12:00 04/12/18 16:00 04/12/18 20:00 Temperature 97.4 F L 97.1 F L 97.2 F L Pulse Rate 101 H 68 77 Respiratory Rate 18 18 16 Blood Pressure 117/79 124/80 130/81 Pulse Oximetry 99 99 100 04/13/18 00:00 04/13/18 08:00 Temperature 97.1 F L 97.7 F Pulse Rate 59 L 54 L Respiratory Rate 16 17 Blood Pressure 131/73 110/73 Pulse Oximetry 98 99 Intake & Output 04/12/18 04/13/18 04/13/18 18:59 06:59 18:59 Intake Total 453 / 453 480 / 480 Balance 453 / 453 480 / 480 Intake: IV 453 / 453 NS Inj 1,000 ML @ 70 mls/hr IV. 453 / 453 CONT .[id number] [facility] Rx#:[id number] Oral 480 / 480 Other: # Voids 2 Results Procedures completed during hospitalization: None Labs on day of discharge: Labs from last 24 hours 04/11/18 04/11/18 04/11/18 10:59 10:59 10:59 Ser Oligoclonal Bands 7 CSF Oligoclonal Bands 13 CSF Olig Protein Interp 6 CSF Herpes I DNA (PCR) Negative CSF Herpes II DNA (PCR) Negative Absolute Lymphocytes % CD3 Cells Absolute CD3 Count % CD3-/CD16+/CD56+ Abs CD3-/CD16+/CD56+ % CD4 Cells Absolute CD4 Count T-Help/Suppress Ratio % CD8 Cells Absolute CD8 Count % CD19 Cells Absolute CD19 Count CMV Specimen Source Csf CMV DNA Quant PCR Negative Enterovirus Source Enterovirus RNA (PCR) 04/11/18 04/09/18 10:59 14:41 Ser Oligoclonal Bands CSF Oligoclonal Bands CSF Olig Protein Interp CSF Herpes I DNA (PCR) CSF Herpes II DNA (PCR) Absolute Lymphocytes 1015 % CD3 Cells 88 H Absolute CD3 Count 894 % CD3-/CD16+/CD56+ 6 Abs CD3-/CD16+/CD56+ 66 L % CD4 Cells 24 L Absolute CD4 Count 234 L T-Help/Suppress Ratio 0.40 L % CD8 Cells 65 H Absolute CD8 Count 626 % CD19 Cells 5 L Absolute CD19 Count 58 L CMV Specimen Source CMV DNA Quant PCR Enterovirus Source Csf Enterovirus RNA (PCR) Negative Preliminary micro results at discharge 04/11/18 10:59 CSF Culture - Preliminary Lumbar Puncture No growth in 48 hours - Impressions ITS Impressions Head CT 04/09/18 13:58 CONCLUSION: 1. Negative, inflammatory process cannot be entirely excluded. . Head MRI 04/11/18 00:00 CONCLUSION: 1. Minimal white matter disease. Lumbar Puncture Fluoroscopy 04/11/18 14:52 CONCLUSION: 1. Uncomplicated fluoroscopically guided lumbar puncture. Discharge Plan - Discharge Disposition Patient Disposition: [facility] Disc To [facility] - Discharge Condition Condition: Stable - Discharge Order Discharge Orders: Discharge Order (Routine); Ordered 04/13/18 Ordered By: Maria G Najera - Physicians Team Primary Care Provider: Primary Care Yaneth Hogan Attending Provider: Maria G Najera Other Providers: Beto Ruiz MD ; [employer] ; Noe Blanchard MD
[2018-04-13 12:01] VITALS: BP 112/61; PULSE 63; RESP 18; TEMP 97.8; O2SAT 97
== END 2018-04-13 13:52 ==
LOC: NEPB 12:31 → NEDA 12:31 → OBSVTOIN 18:04 → NEPFCDU 19:17 → N07 04-10 16:42
PROVIDERS: ADMIT Family Medicine; ATTEND Family Medicine

== ENCOUNTER 2018-04-13 13:58 | Inpatient (IN) ==
[2018-04-14] MEDS ORDERED: Aluminum/Magnesium/Simethacone Susp 30 ML UDC PO PRN (03:57)
[2018-04-14] MEDS ORDERED: Acetaminophen 325 MG Tablet PO PRN (03:57)
[2018-04-14 08:40] LABS: Calcium 8.7 mg/dL (8.5-10.1); Carbon Dioxide 26.6 meq/L (21.0-32.0)
[2018-04-14 08:42] LABS: Chol/HDL Ratio 3.72 Ratio; HDL Cholesterol 41.6 mg/dL (40.0-60.0)
[2018-04-14 08:54] LABS: Potassium 3.4 meq/L (3.5-5.1)
--- NOTE | 2018-04-14 12:55 | P.HPPSY ---
Provisional Diagnosis Admission Date: April 13, 2018 14:25 Competence Certification of Person's Competence To Provide Express and Informed Consent I have personally examined Celia Gutierrez, a person being served at [facility] on, April 14, 2018 1249. Express and informed consent means consent voluntarily given in writing, by a competent person, after sufficient explanation and disclosure of the subject matter involved to enable the person to make a knowing and willful decision without any element of force, fraud, deceit, duress, or other form of constraint or coercion. This person is 18 years of age or older, is not now known to be incompetent to consent to treatment with a guardian advocate, and does not have a health care surrogate or proxy currently making medical treatment decisions. I have found this person to be one of the following: [] Competent to provide express and informed consent, as defined above, for voluntary admission to this facility and is competent to provide express and informed consent for treatment. He/she has the consistent capacity to make well reasoned, willful, and knowing decisions concerning his or her medical or mental health treatment. The person fully and consistently understands the purpose of the admission for examination/placement and is fully capable of personally exercising all rights assured [place] [X] Incompetent to provide express and informed consent to voluntary admission, and this is incompetent to provide express and informed consent to treatment. The person must be transferred to involuntary status and a petition for a guardian advocate filed with the Circuit Court. [] Refusing to provide express and informed consent to voluntary admission but is competent to provide express and informed consent for treatment. The person must be discharged or transferred to involuntary status. Form shall be completed within 24 hours of a person's arrival at the receiving facility and filed in the clinical record of each person: 1. Admitted on a voluntary basis 2. Permitted to provide express and informed consent to his/her own treatment 3. Allowed to transfer from involuntary to voluntary status 4. Prior to permitting a person to consent to his or her own treatment after having been previously found incompetent to consent to treatment. History of Present Illness Capacity: Lacks capacity Chief Complaint: See below History of Present Illness: Patient is a 54-year-old female admitted to the inpatient psychiatry unit for change in mental status and bizarre behavior. Patient is minimally cooperative and is a poor historian. She was interviewed today with the nurse in her room. Per record, patient was admitted after bizarre behavior and walking into the wrong hotel room. Patient has been homeless and is claiming amnesia. She does know her name and her location but says she does not recall any of the events that led her to the hospital. She responds with I do not know to most answers. She says she does not have any family but nursing has contacted her mother who may be willing to be her surrogate. It is unclear if patient is malingering. Mother told nursing she is not aware of any medical history or psychiatric history. Patient is flat, drowsy and minimally engaged during the interview. She does deny suicidal or homicidal ideation intent or plan. Denies any psychotic symptoms. - Inpatient Certification I certify that the inpatient services were ordered in accordance with Medicare regulations governing the order. This includes certification that hospital inpatient services are reasonable and necessary and in the case of services not specified as inpatient-only under 42 CFR 419.22(n), that they are appropriately provided as inpatient services in accordance to with the 2-midnight benchmark under 43 CFR 412.3(e) I certify that inpatient psychiatric hospital services are medically necessary. Evaluation and treatment and/or diagnostic testing are expected to improve the patient's condition. The patient needs on a daily basis, active treatment furnished directly by or requiring the supervision of inpatient psychiatric facility personnel. [facility] - History History Provided By: Patient - Medical / Surgical Hx Neg / Unobtainable Medical Problems Denied: Yes Surgical History: No Previous Surgery - Medical History Medical History: Medical History (Last Reviewed 04/10/18 @ 13:47 by Lucas Rawls) Anemia HIV (human immunodeficiency virus infection) Hepatitis C History of hysterectomy Migraines Schizophrenia - Surgical History Surgical History: Surgical History (Last Updated 04/09/18 @ 21:51 by Amy Marie MD) History of rhinoplasty Status post laparoscopic surgery - Family History Family History: Family History (Last Updated 04/09/18 @ 21:51 by Amy Marie MD) Other Family history normal - Social History I have reviewed the patient's Social History: Yes - Tobacco History Smoking Status: Cognitive impairment - Alcohol History How Often Do You Have a Drink Containing Alcohol: Unable to Obtain - Substance Use History Substance History: Unable to Obtain Medications and Allergies Active Medications: Active Medications Acetaminophen (Tylenol) 650 mg PO Q4H PRN PRN Reason: Pain 1-5 or Temp >101F Al Hydrox/Mg Hydrox/Simethicone (Mag-Al Plus Susp Liq) 30 ml PO Q6H PRN PRN Reason: DYSPEPSIA Al Hydroxide/Mg Hydroxide (Milk Of Magnesia Liq) 30 ml PO Q12H PRN PRN Reason: Mild Constipation Allergies Allergy/AdvReac Type Severity Reaction Status Date / Time No Known Allergies Allergy Unverified 04/09/18 13:11 Results - Labs CBC & Chem 7: 04/14/18 07:34 Labs: Laboratory Results - last 24 hr 04/14/18 07:34 Sodium 143 Potassium 3.4 L Chloride 109 H Carbon Dioxide 26.6 Anion Gap 7 BUN 17 Creatinine 0.95 Estimated GFR 62 L Random Glucose 82 Calcium 8.7 Triglycerides 105 Cholesterol 155 LDL Cholesterol, Calc 92 HDL Cholesterol 41.6 Cholesterol/HDL Ratio 3.72 Exam Vital signs: Vital Signs 04/13/18 18:18 04/14/18 05:51 Temperature 98.2 F 97.8 F Pulse Rate 65 64 Respiratory Rate 16 Blood Pressure 130/85 110/72 Pulse Oximetry 98 97 Intake & Output 04/13/18 04/14/18 04/14/18 18:59 06:59 18:59 Weight 46.6 kg Other: Weight On Admission 46.3 kg Mental Status Examination Appearance: Disheveled Consciousness: Somnolent Orientation: Person Motor Activity: Other (Not tested) Speech: Slow Language: Other Fund of Knowledge: Inadequate Attention and Concentration: Easily distracted Memory: Impaired Mood: Other ("ok") Affect: Flat Thought Process & Associations: Disorganized Thought Content: Depersonalization Hallucination Type: None Delusion Type: None Suicidal Ideation: No Suicidal Plan: No Suicidal Intention: No Homicidal Ideation: No Homicidal Plan: No Homicidal Intention: No Insight: Poor Judgment: Poor Assessment and Plan - Assessment (1) Psychosis not due to substance or known physiological condition Code(s): F29 - Unspecified psychosis not due to a substance or known physiological condition Status: Acute - Plan Plan: Estimated LOS: [] days Patient is a 53-year-old female admitted for change in mental status. History is unclear. Nursing will work to get mother is a surrogate and we will consider starting an antipsychotic in the next couple of days. We will order an MRI given patient's confusion and amnesia. Patient does not have capacity and first opinion was started Justification for Continued Inpatient Stay: Patient would decompensate in a less restrictive setting
--- NOTE | 2018-04-14 16:08 | P.CONPSY ---
Provisional Diagnosis Admission Date: April 13, 2018 14:25 [place] I.: 1. Unspecified psychosis [place] II.: Deferred History of Present Illness Service: Psychiatry Consult date: 04/14/18 Requesting Physician: Samuel Reyes Reason for Consult: Second opinion for involuntary psychiatric hospitalization Primary Care Provider: UNKNOWN Family Provider: No Primary Care Physician History of Present Illness: From Dr. Reyes's H&P: Patient is a 54-year-old female admitted to the inpatient psychiatry unit for change in mental status and bizarre behavior. Patient is minimally cooperative and is a poor historian. She was interviewed today with the nurse in her room. Per record, patient was admitted after bizarre behavior and walking into the wrong hotel room. Patient has been homeless and is claiming amnesia. She does know her name and her location but says she does not recall any of the events that led her to the hospital. She responds with I do not know to most answers. She says she does not have any family but nursing has contacted her mother who may be willing to be her surrogate. It is unclear if patient is malingering. Mother told nursing she is not aware of any medical history or psychiatric history. Patient is flat, drowsy and minimally engaged during the interview. She does deny suicidal or homicidal ideation intent or plan. Denies any psychotic symptoms. On my examination today, 04/14: Patient seen and examined with nurse. Chart reviewed. I note patient was seen in consultation by Dr. Blanchard. Case discussed with nursing staff. On my examination today, the patient is laying in bed, seeming to feign sleep. She has the covers pulled tightly over her head and when uncovered volitionally pulls them back over her head again. She is negativistic and mute. She has no waxy flexibility or posturing. She does not follow simple commands. Psychiatric interview is limited because of the patient's uncooperativeness/ negativism. No signs of acute physical distress. Review of Systems unobtainable due to mental condition PMFSH - History History Provided By: Patient - Medical / Surgical Hx Neg / Unobtainable Medical Problems Denied: Yes - Medical History Medical History: Medical History (Last Reviewed 04/10/18 @ 13:47 by Lucas Rawls) Anemia HIV (human immunodeficiency virus infection) Hepatitis C History of hysterectomy Migraines Schizophrenia - Surgical History Surgical History: Surgical History (Last Updated 04/09/18 @ 21:51 by Amy Marie MD) History of rhinoplasty Status post laparoscopic surgery - Family History Family History: Family History (Last Updated 04/09/18 @ 21:51 by Amy Marie MD) Other Family history normal - Tobacco History Smoking Status: Cognitive impairment - Alcohol History How Often Do You Have a Drink Containing Alcohol: Unable to Obtain - Substance Use History Substance History: Unable to Obtain Medications and Allergies Active Medications: Active Medications Acetaminophen (Tylenol) 650 mg PO Q4H PRN PRN Reason: Pain 1-5 or Temp >101F Al Hydrox/Mg Hydrox/Simethicone (Mag-Al Plus Susp Liq) 30 ml PO Q6H PRN PRN Reason: DYSPEPSIA Al Hydroxide/Mg Hydroxide (Milk Of Magnesia Liq) 30 ml PO Q12H PRN PRN Reason: Mild Constipation Allergies Allergy/AdvReac Type Severity Reaction Status Date / Time No Known Allergies Allergy Unverified 04/09/18 13:11 Exam Vital signs: Vital Signs 04/13/18 18:18 04/14/18 05:51 04/14/18 06:00 Temperature 98.2 F 97.8 F 97.8 F Pulse Rate 65 64 64 Respiratory Rate 16 16 Blood Pressure 130/85 110/72 110/72 Pulse Oximetry 98 97 97 Intake & Output 04/13/18 04/14/18 04/14/18 18:59 06:59 18:59 Weight 46.6 kg Other: Weight On Admission 46.3 kg Narrative: Physical examination completed by hospitalist on the medical floor. On my examination today, the patient appears to be in no acute physical distress. No motor abnormalities noted. Labs and vital signs reviewed: Laboratory Results - last 24 hr 04/14/18 07:34 Sodium 143 Potassium 3.4 L Chloride 109 H Carbon Dioxide 26.6 Anion Gap 7 BUN 17 Creatinine 0.95 Estimated GFR 62 L Random Glucose 82 Calcium 8.7 Triglycerides 105 Cholesterol 155 LDL Cholesterol, Calc 92 HDL Cholesterol 41.6 Cholesterol/HDL Ratio 3.72 Mental Status Examination Appearance: Disheveled Consciousness: Other (fegining sleep) Motor Activity: Other (No motor abnormalities noted) Speech: Other (Mute) Affect: Flat Mental Status Exam Remarks: MSE is limited as the patient is uncooperative. Assessment and Plan - Assessment (1) Psychosis not due to substance or known physiological condition Code(s): F29 - Unspecified psychosis not due to a substance or known physiological condition Status: Acute - Plan Plan: Given the circumstances of her presentation here and her presentation on my examination today, I concur with Dr. Reyes that the patient meets criteria for involuntary psychiatric hospitalization under the Ramon act. Main concern here would be for potential self-care deficit secondary to mental illness. I have completed the second opinion paperwork. Further care as per Dr. Reyes. Thank you very much for this consultation. Signing off. Justification for Continued Inpatient Stay: N/A.
--- NOTE | 2018-04-14 17:31 | P.CON ---
History of Present Illness Service: Hospitalist Consult date: 04/14/18 Requesting Physician: Anjana Jiang Reason for Consult: Medical management Primary Care Provider: UNKNOWN Family Provider: No Primary Care Physician Chief Complaint: AMS History of Present Illness: Patient is a 53-year-old female who is admitted to psychiatry unit due to a change in mental status and bizarre behavior. She was recently discharged from hospital after she was brought by the police for medical clearance. At that time she was found to be wandering in other people's hotel rooms and claiming to be disoriented and not knowing where she was. She was medically cleared after workup which included head CT 04/09 and head MRI 04/11- both of which were normal. Lumbar puncture was also completed on 04/11 and was negative. All recent labs have been grossly normal with no indication of cause for her confusion. She does have HIV which is not currently being treated. Plan was for outpatient ID management. We have been consulted for medical management. Patient is seen lying in her bed in her room. She does not respond to my questions and tightly closes her eyes and covers her head. She does allow limited physical exam and follows a few simple commands. Nursing reports no adverse events. Review of Systems unobtainable due to mental condition PMFSH - History History Provided By: Medical Record - Medical / Surgical Hx Neg / Unobtainable Medical Problems Denied: Unable to Obtain Surgical History: Unable to Obtain - Medical History Medical History: Medical History (Last Reviewed 04/10/18 @ 13:47 by Lucas Rawls) Anemia HIV (human immunodeficiency virus infection) Hepatitis C History of hysterectomy Migraines Schizophrenia - Surgical History Surgical History: Surgical History (Last Updated 04/09/18 @ 21:51 by Amy Marie MD) History of rhinoplasty Status post laparoscopic surgery - Family History Family History: Family History (Last Updated 04/09/18 @ 21:51 by Amy Marie MD) Other Family history normal - Tobacco History Smoking Status: Cognitive impairment - Alcohol History How Often Do You Have a Drink Containing Alcohol: Unable to Obtain - Substance Use History Substance History: Unable to Obtain Medications and Allergies Active Medications: Active Medications Acetaminophen (Tylenol) 650 mg PO Q4H PRN PRN Reason: Pain 1-5 or Temp >101F Al Hydrox/Mg Hydrox/Simethicone (Mag-Al Plus Susp Liq) 30 ml PO Q6H PRN PRN Reason: DYSPEPSIA Al Hydroxide/Mg Hydroxide (Milk Of Magnesia Liq) 30 ml PO Q12H PRN PRN Reason: Mild Constipation Allergies Allergy/AdvReac Type Severity Reaction Status Date / Time No Known Allergies Allergy Unverified 04/09/18 13:11 Physical Exam Vital signs: Vital Signs 04/13/18 18:18 04/14/18 05:51 04/14/18 06:00 Temperature 98.2 F 97.8 F 97.8 F Pulse Rate 65 64 64 Respiratory Rate 16 16 Blood Pressure 130/85 110/72 110/72 Pulse Oximetry 98 97 97 Intake & Output 04/13/18 04/14/18 04/14/18 18:59 06:59 18:59 Weight 46.6 kg Other: Weight On Admission 46.3 kg Narrative: GENERAL: Well-nourished, well-developed adult female in no obvious distress. SKIN: Warm and dry. HEAD: Atraumatic. Normocephalic. CARDIOVASCULAR: Regular rate and rhythm. RESPIRATORY: No accessory muscle use. Clear to auscultation. Breath sounds equal bilaterally. GASTROINTESTINAL: Abdomen soft, non-tender, non-distended. Positive bowel sounds. MUSCULOSKELETAL: Extremities without clubbing, cyanosis, or edema. No obvious deformities. NEUROLOGICAL: Unable to complete due to patient refusal Assessment and Plan - Plan 53-year-old female with a recent history of altered mental status and confusion. No obvious medical cause. Medical history includes schizophrenia, HIV/hep C. Patient is known to be noncompliant with medical plan. AMS/psychosis/schizophrenia -Managed by psychiatry At this time there appears to be nothing that hospitalist service can assist with as patient had complete workup within the last few days. Vital signs are stable and labs are grossly normal with the exception of HIV labs. HIV treatment is best done in the outpatient setting. Thank you for this consult. If patient becomes medically unstable please reconsult.
--- NOTE | 2018-04-15 14:28 | P.PNPSY ---
Subjective Chief Complaint: Psychosis Remarks: Reviewed electronic medical records and discussed case with staff. Follow-up was conducted in patient's room [facility]. Patient is in bed with the covers over her head. She speaks is a low tone and will only respond in one to two word responses. She refuses to get out of bed. She is disheveled and refused to conduct hygiene. She missed breakfast, but did eat some of her lunch. Patient was on 7N and did not know her name. She will not answer basic questions so it is difficult to determine her depth of knowledge or orientation to person, place or time. Staff shared that she has a service dog which apparently is her connection, but she does not respond when you ask her about the dog. Review of Systems All other systems reviewed negative except as stated in HPI Mental Status Examination Appearance: Disheveled Consciousness: Other (unable to determine orientation as she will not respond to questions) Orientation: Person Motor Activity: Other (No motor abnormalities noted) Speech: Other (answering in one to two word responses ) Language: Other Fund of Knowledge: Inadequate Attention and Concentration: Easily distracted Memory: Impaired Mood: Sad Affect: Flat Thought Process & Associations: Disorganized Thought Content: Depersonalization Hallucination Type: None Delusion Type: None Suicidal Ideation: No Suicidal Plan: No Suicidal Intention: No Homicidal Ideation: No Homicidal Plan: No Homicidal Intention: No Insight: Poor Judgment: Poor Assessment and Plan - Assessment (1) Psychosis not due to substance or known physiological condition Code(s): F29 - Unspecified psychosis not due to a substance or known physiological condition Status: Acute - Plan Plan: Continue current plan of care. Psychiatrist will see patient on Monday. Justification for Continued Inpatient Stay: Moving patient to a less restrictive environment may result in her decompensation.
--- NOTE | 2018-04-16 13:30 | P.PNPSY ---
Subjective Chief Complaint: Psychosis Remarks: I am assuming care of patient's case. Patient seen and examined with nurse. Chart reviewed. Case discussed with nursing staff. On my examination today, the patient is a vague historian. She has some thought blocking. She complains of subjective concentration difficulty/confusion. She denies any SI or HI. Denies any AVH but does appears somewhat internally preoccupied. Denies a history of suicide attempts. Denies any substance use. Says that she is presently homeless. Review of the electronic medical record indicates that the patient was previously hospitalized in 2017 under a different medical record number under Dr. Urbano. She was stabilized on a combination of Zyprexa and Zoloft at that time. No acute physical complaints. Vital signs reviewed. Review of Systems All other systems reviewed negative except as stated in HPI (Limitation: Poor historian) Mental Status Examination Appearance: Disheveled Consciousness: Alert Orientation: Person, Place, Date/Time Motor Activity: Other (No abnormal motor movements noted) Speech: Hesitant Language: Adequate Fund of Knowledge: Inadequate Attention and Concentration: Easily distracted Memory: Impaired Mood: Other (Calm) Affect: Blunt Thought Process & Associations: Tangential Thought Content: Thought blocking Hallucination Type: None Delusion Type: None Suicidal Ideation: No Suicidal Plan: No Suicidal Intention: No Homicidal Ideation: No Homicidal Plan: No Homicidal Intention: No Insight: Poor Judgment: Poor Assessment and Plan - Assessment (1) Psychosis not due to substance or known physiological condition Code(s): F29 - Unspecified psychosis not due to a substance or known physiological condition Status: Acute - Plan Plan: Resume previously efficacious Zyprexa and Zoloft. Zyprexa 5 mg at bedtime and Zoloft 50 mg daily with plans to titrate both to effect. Recheck BMP in the morning to follow-up laboratory abnormalities. Hospitalist input noted and appreciated. Continue other medications and care as ordered. Continue to monitor on the inpatient unit. Patient may sign voluntary. Justification for Continued Inpatient Stay: Med changes. Impairment in reality construction. Risk for decompensation in less restrictive setting. Discharge Planning: Pending psychiatric stabilization. Counselor to reach out for collateral. Request Healthcare Surrogate/Guardian Advocate?: No
[2018-04-16 15:46] LABS: Calcium 9.4 mg/dL (8.5-10.1); Carbon Dioxide 31.2 meq/L (21.0-32.0); Potassium 3.5 meq/L (3.5-5.1)
[2018-04-17 07:42] LABS: Calcium 9.1 mg/dL (8.5-10.1); Carbon Dioxide 29.7 meq/L (21.0-32.0); Potassium 4.4 meq/L (3.5-5.1)
[2018-04-17] MEDS: Sertraline 50 MG Tablet PO SCH (09:32)
--- NOTE | 2018-04-17 10:45 | P.TTN ---
- Patient Problems Problems: 1. Discharge planning 2. Medication compliance 3. Knowledge deficit 4. Lack of coping skills - Progress Toward Goals Provider Present: Dr. Debbie Cerrato Provider Input: Dr Cerrato: history of psychosis, offered to start back on medications, appears resistent to medications and has limited insight and motivation for treatment Nurse Input: Joel: refused medications this morning , wants a place to live, secludes often and is bizarre, in her room often sitting on bed and staring Psychiatric Counselors Present: Lila Luther [facility] Psychiatric Therapist Input: met with patient and she shares after some time opening up that she has an apartment in [address] , she sees Dr Sheets but shares she does not want or need any medications, she states she wants a new place if we can assign a caseworker intake but she does not want an DETENTION, she is unsure of her income, is very delayed in her responds, watchful and guarded, she later comes and states " I can take the bus, now and I can be well on my own, I have a dog, too I need to get home to" asked her who takes care of her dog and she pointed to the ceiling/kp Group Spec/RT/OT/QUACH Present: MAIN [facility] (does not attend groups ) - Documentation Teaching Recipient: Patient
--- NOTE | 2018-04-17 15:16 | P.PNPSY ---
Subjective Chief Complaint: Psychosis Remarks: Patient seen and examined with nurse. Chart reviewed. Case discussed with nursing staff who reports patient refused Zyprexa and Zoloft. Case discussed in treatment team. Counselor will endeavor to obtain collateral information. On my examination today, the patient remains reluctant to take medications. At the same time, she does present as paranoid, saying that she believes that the house that she was residing in prior to admission was somehow "a setup. A traphouse." She remains oddly related. She denies SI or HI. Denies AVH. No physical complaints. I did encourage adherence with psychotropic medications, and towards the end of our interaction I do feel that the patient might be willing to give these medications a try. Vital Signs Temp Pulse Resp BP Pulse Ox 04/17/18 05:48 98.2 F 69 16 93/68 L 98 04/16/18 18:43 98.1 F 72 16 114/69 96 Laboratory Results - last 24 hr 04/17/18 05:51 Sodium 143 Potassium 4.4 D Chloride 105 Carbon Dioxide 29.7 Anion Gap 8 BUN 16 Creatinine 1.21 H Estimated GFR 47 L Random Glucose 80 Calcium 9.1 Labs reviewed. Review of Systems All other systems reviewed negative except as stated in HPI Mental Status Examination Appearance: Other (Fair) Consciousness: Alert Orientation: Person, Place, Date/Time Motor Activity: Other (No abnormal motor movements noted) Speech: Hesitant Language: Adequate Fund of Knowledge: Inadequate Attention and Concentration: Easily distracted Memory: Impaired Mood: Other (Calm) Affect: Blunt Thought Process & Associations: Circumstantial Thought Content: Thought blocking Hallucination Type: None Delusion Type: None Suicidal Ideation: No Suicidal Plan: No Suicidal Intention: No Homicidal Ideation: No Homicidal Plan: No Homicidal Intention: No Insight: Poor Judgment: Poor Assessment and Plan - Assessment (1) Psychosis not due to substance or known physiological condition Code(s): F29 - Unspecified psychosis not due to a substance or known physiological condition Status: Acute - Plan Plan: Continue to offer psychotropic medications as ordered. Awaiting hospitalist input for a decreased GFR, which persists. Continue to monitor on the inpatient unit. Continue other medications and care as ordered. Justification for Continued Inpatient Stay: Risk for decompensation in less restrictive environment. Discharge Planning: Pending psychiatric stabilization. Request Healthcare Surrogate/Guardian Advocate?: No
[2018-04-18] MEDS: Sertraline 50 MG Tablet PO SCH (08:18)
--- NOTE | 2018-04-18 12:52 | P.PNPSY ---
Subjective Chief Complaint: Psychosis Remarks: Patient seen and examined with nurse. Chart reviewed. Case discussed with nursing staff. Case discussed with counselor. Patient did accept her Zyprexa last night but refused Zoloft this morning. On my exam the patient is paranoid and somewhat irritable. She is a little bit childlike. She denies AVH. Denies SI or HI. Somewhat faultfinding. Discharge focused; I educated patient regarding ROR. No reported side effects from medications. No physical complaints. Vital Signs Temp Pulse Resp BP Pulse Ox 04/18/18 07:54 98.2 F 72 16 107/57 L 98 04/18/18 06:00 96.9 F L 62 17 121/74 97 Intake and Output 04/18/18 04/18/18 04/18/18 06:59 14:59 22:59 Intake Total 840 / 840 Balance 840 / 840 Intake: Oral 840 / 840 Labs reviewed. No new labs. Review of Systems All other systems reviewed negative except as stated in HPI (Limitation: Psychosis) Mental Status Examination Appearance: Other (Fair) Consciousness: Alert Orientation: Person, Place, Date/Time Motor Activity: Other (No motoric abnormalities noted) Speech: Unremarkable Language: Adequate Fund of Knowledge: Inadequate Attention and Concentration: Easily distracted Memory: Impaired Mood: Oppositional, Irritable Affect: Irritable Thought Process & Associations: Circumstantial Thought Content: Thought blocking Hallucination Type: None Delusion Type: Paranoid Suicidal Ideation: No Suicidal Plan: No Suicidal Intention: No Homicidal Ideation: No Homicidal Plan: No Homicidal Intention: No Insight: Poor Judgment: Poor Assessment and Plan - Assessment (1) Psychosis not due to substance or known physiological condition Code(s): F29 - Unspecified psychosis not due to a substance or known physiological condition Status: Acute - Plan Plan: Titrate Zyprexa to 7.5 mg at bedtime. Continue to monitor on the inpatient unit. Continue other medications and care as ordered. Justification for Continued Inpatient Stay: Medication changes. Impairment in reality construction. High risk for decompensation in less restrictive environment. Discharge Planning: Pending psychiatric stabilization. Request Healthcare Surrogate/Guardian Advocate?: No
[2018-04-18] MEDS ORDERED: OLANZapine 2.5 MG Tablet PO SCH (21:00)
[2018-04-19 05:48] VITALS: RESP 16
[2018-04-19 07:15] VITALS: TEMP 97.6
[2018-04-19 07:18] VITALS: BP 114/78; PULSE 62; O2SAT 97
[2018-04-19] MEDS: Sertraline 50 MG Tablet PO SCH (09:00)
--- NOTE | 2018-04-19 13:13 | P.DSPSY ---
Psychiatry Discharge Summary Inpatient Psychiatric care?: Yes Advance Directives: No Reason for Unknown:: Due to Patient Condition Mental Health Advance Directive: No Health Care Proxy: No - Admission Admission Date: April 13, 2018 14:25 - Admission Diagnosis (1) Unspecified psychosis Code(s): F29 - Unspecified psychosis not due to a substance or known physiological condition Brief History: Patient is a 54-year-old female admitted to the inpatient psychiatry unit for change in mental status and bizarre behavior. Patient is minimally cooperative and is a poor historian. She was interviewed today with the nurse in her room. Per record, patient was admitted after bizarre behavior and walking into the wrong hotel room. Patient has been homeless and is claiming amnesia. She does know her name and her location but says she does not recall any of the events that led her to the hospital. She responds with I do not know to most answers. She says she does not have any family but nursing has contacted her mother who may be willing to be her surrogate. It is unclear if patient is malingering. Mother told nursing she is not aware of any medical history or psychiatric history. Patient is flat, drowsy and minimally engaged during the interview. She does deny suicidal or homicidal ideation intent or plan. Denies any psychotic symptoms. Tobacco Use In Past 30 Days: No How Often Do You Have a Drink Containing Alcohol: Unable to Obtain Hospital Course: Patient was admitted to a locked, inpatient psychiatric unit. A general medical consultation was obtained. Appropriate precautions were in place throughout patient's hospital stay. Patient was seen and examined on the unit by psychiatry and also visited by counselor. Psychotropic medication management was attempted, but the patient was resistant to taking medications. She insists that she will take medications on an outpatient basis but does not wish to take them here in the hospital. There was no evidence of any suicidality or homicidality on the inpatient unit. Counselor has obtained collateral information from the patient's mother to the effect that she does have a residence to which she can go and an income. The patient has completed a right of release. On the day of discharge: Patient seen and examined with nurse. Chart reviewed. Patient refused psychotropics overnight. Case discussed with nursing staff. No behavioral issues noted. Case discussed with counselor. On my examination today, the patient continues to insist on discharge from the inpatient psychiatric unit today. She denies any suicidal or homicidal ideation, intent or plan. I can elicit no hypomanic or manic symptoms or depressive symptoms. She denies any audiovisual hallucinations. She has no jose delusional material. She does continue to exhibit some thought blocking and perhaps some negative symptoms of a primary psychotic illness such as affective flattening. No physical complaints. Weighing the relevant factors and based on the available evidence, I stummel selector that the patient does not presently meet criteria for involuntary psychiatric hospitalization. There is no evidence of imminent risk of harm to self or others at this point, nor is there evidence of severe self-care deficit to substantiate involuntary psychiatric hospitalization. She is insisting on discharge today and I have no basis to retain her over her objection. I have strongly recommended that she remain on the unit for further stabilization, but she has declined. I will therefore discharge her AGAINST MEDICAL ADVICE. I have explained to the patient that she is leaving AGAINST MEDICAL ADVICE. Psychiatric follow-up as arranged by counselor. Patient is also to follow up with primary care for her medical issues including HIV. I have counseled the patient regarding warning signs for need to return to the psychiatric emergency room as part of a general safety plan. The patient is willing to accept a Zyprexa prescription on discharge today, and I will write for the 5 mg dose, which is the only dose that she accepted. - Discharge Discharge Date: 04/19/18 - Discharge Diagnosis (1) Schizophrenia Diagnosis: Principal Code(s): F20.9 - Schizophrenia, unspecified Status: Chronic Discharge Disposition: Home - Discharge Instructions Discharge Diet: Regular Diet Activities You Can Perform: Weight Bearing As Tolerat - Discharge Time <= 30 minutes Mental Status Examination Appearance: Other (Fair) Consciousness: Alert Orientation: Person, Place, Date/Time Motor Activity: Other (No abnormal motor movements noted) Speech: Unremarkable Language: Adequate Fund of Knowledge: Inadequate Attention and Concentration: Easily distracted Memory: Impaired Mood: Oppositional Affect: Flat Thought Process & Associations: Circumstantial Thought Content: Thought blocking Hallucination Type: None Delusion Type: None Suicidal Ideation: No Suicidal Plan: No Suicidal Intention: No Homicidal Ideation: No Homicidal Plan: No Homicidal Intention: No Insight: Poor Judgment: Poor Discharge/Advance Care Plan - Results Vital Signs: Last Vital Signs Temp 97.6 F 04/19/18 07:14 Pulse 62 04/19/18 07:14 Resp 16 04/19/18 07:14 BP 114/78 04/19/18 07:14 Pulse Ox 97 04/19/18 07:14 Lab Results: Laboratory Results Triglycerides 105 mg/dL (42-150) 04/14/18 07:34 Cholesterol 155 mg/dL (120-200) 04/14/18 07:34 LDL Cholesterol, Calc 92 mg/dL (0-99) 04/14/18 07:34 HDL Cholesterol 41.6 mg/dL (40.0-60.0) 04/14/18 07:34 Summary of Procedures: None done. Pending Results: None - Medications Number of antipsychotic medications at discharge: 1 - Discharge Care Plan Goals to Promote Your Health: * To prevent worsening of your condition and complications * To maintain your health at the optimal level Directions to Meet Your Goals: Take your medications as prescribed Follow your dietary instruction Follow activity as directed Keep your appointments as scheduled Take your immunizations and boosters as scheduled If your symptoms worsen call your PCP, if no PCP go to Urgent Care Center or Emergency Room For 20/02 questions related to your inpatient stay or results of tests pending at discharge, please contact Dr. Nraciso Cerrato MD at [phone] Smoking is Dangerous to Your Health. Avoid second hand smoking (1) Schizophrenia Qualifiers: Schizophrenia type: undifferentiated schizophrenia Qualified Code(s): F20.3 - Undifferentiated schizophrenia
== END 2018-04-19 15:10 | disposition home or self-care (01) ==
LOC: H260 14:25
PROVIDERS: ADMIT Psychiatry & Neurology Psychiatry; ATTEND Psychiatry & Neurology Psychiatry